=== PATIENT | male | born 1995 | race Caucasian/White ===

== ENCOUNTER 2017-11-10 10:30 | Emergency (ER) | payer SELFPAY ==
[~2017-11-10] VITALS: Ht 175.3 cm; Wt 63.7 kg
[2017-11-10 10:40] VITALS: BP 119/76
[2017-11-10] MEDS ORDERED: IBUPROFEN 200 MG TABLET PO ONE (11:30)
[2017-11-10] MEDS ORDERED: IBUPROFEN 200 MG TABLET ONE (11:35)
== END 2017-11-10 11:48 | disposition home or self-care (01) ==
LOC: ED 11:00
DX: S93.492A Sprain of other ligament of left ankle, initial encounter (principal); Y93.39 Activity, other involving climbing, rappelling and jumping off; Y93.89 Activity, other specified; Y92.89 Other specified places as the place of occurrence of the external cause; Y99.8 Other external cause status
CPT/HCPCS: 99284

== ENCOUNTER 2018-06-20 23:22 | Emergency (ER) | payer OTHER ==
[~2018-06-20] VITALS: Ht 175.3 cm; Wt 65.6 kg
[2018-06-20 23:24] VITALS: BP 110/74
[2018-06-21] MEDS ORDERED: DIPH,PERTUSS(ACELL),TET VAC/PF 0.5 ML IM-VACC ONE ×2
== END 2018-06-21 00:44 | disposition home or self-care (01) ==
LOC: ED 06-21 00:38
DX: S91.332A Puncture wound without foreign body, left foot, initial encounter (principal); W45.0XXA Nail entering through skin, initial encounter; Y93.89 Activity, other specified; Y92.69 Other specified industrial and construction area as the place of occurrence of the external cause; Y99.8 Other external cause status
CPT/HCPCS: 90471; 90715

== ENCOUNTER 2018-11-21 07:02 | Emergency (ER) | payer OTHER ==
[~2018-11-21] VITALS: Ht 175.3 cm; Wt 65.9 kg
[2018-11-21 07:05] VITALS: BP 110/72
== END 2018-11-21 07:51 | disposition home or self-care (01) ==
LOC: ED 07:40
DX: L03.113 Cellulitis of right upper limb (principal)
CPT/HCPCS: 99283